=== PATIENT | male | born 1965 | race Caucasian/White ===

== ENCOUNTER 2018-01-03 11:10 | Emergency (ER) | payer BC ==
[~2018-01-03 11:10] MED LIST: Iopamidol 370 76% 100 ML VIAL ONE; Sodium Chloride 0.9% 1,000 ML BAG ONE
[2018-01-03 12:07] LABS: #Basophils 0.1 thou/uL (0.0-0.2); #Eosinphils 0.2 thou/uL (0.0-0.7); #Lymphocytes 1.5 thou/uL (1.20-3.40); #Monocytes 0.7 thou/uL (0.11-0.59); #Neutrophils 4.3 thou/uL (1.40-6.50); %Basophils 2.1 % (0.0-1.0); %Eosinophils 3.1 % (0.0-10.0); %Lymphocytes 21.9 % (21.0-51.0); %Monocytes 10.3 % (0.0-10.0); %Neutrophils 62.7 % (42.0-75.0); Hemoglobin 8.6 g/dL (14.0-18.0); Mean Corpuscular HGB CONC 32.4 g/dL (32.0-36.0); Mean Corpuscular Hemoglobin 30.6 pg (27.0-31.0); Mean Corpuscular Volume 94.3 fl (80.0-94.0); Mean Platelet Volume 5.8 fL (7.4-10.4); Platelet Count 120 thou/uL (130-400); RBC Distribution Width 12.7 % (11.5-14.5); Red Blood Cell (RBC) Count 2.83 mill/uL (4.70-6.10); White Blood Cell (WBC) Count 6.8 thou/uL (4.8-10.8)
[2018-01-03 12:12] LABS: Bilirubin Large (Negative); Blood, Urine Large (Negative); Clarity Opaque (Clear); Glucose, Urine (Dipstick) 100 mg/dL (Negative); Leukocyte Large (Negative); Nitrite Positive (Negative); Protein, Urine (Dipstick) > or equal to 300 mg/dL (Neg-Trace); Specific Gravity, Urine 1.015 (1.005-1.030)
[2018-01-03 12:14] LABS: Bacteria/HPF Rare-Few HPF (None Seen); Other Microscopic Description C&S SET UP; RBC/HPF GREATER THAN 50-TNTC HPF (0-3); Squamous Epithelial 0-3 HPF (0-3)
[2018-01-03 12:17] LABS: MDiff Complete? YES; Manual Diff?? NO
[2018-01-03 12:19] LABS: ALT (SGPT) 22 U/L (8-55); AST (SGOT) 103 U/L (5-34); Alkaline Phosphatase 80 U/L (40-150); Anion Gap 16 mmol/L (10-20); BUN (Urea Nitrogen) 4 mg/dL (8.4-25.7); Bilirubin, Total 2.8 mg/dL (0.2-1.2); Calc. Creatinine Clearance 0 mL/min (70-130); Calcium 8.5 mg/dL (7.8-10.44); Carbon Dioxide 26 mmol/L (22-29); Chloride 99 mmol/L (98-107); Estimated GFR-MDRD Greater than 90; Globulin 4.3 g/dL (2.4-3.5); Glucose 199 mg/dL (70-105); Protein, Total 7.3 g/dL (6.0-8.3)
[2018-01-03 12:20] LABS: Sodium 137 mmol/L (136-145)
[2018-01-03] MEDS ORDERED: Morphine 10 MG/ML VIAL ONE ×2 (13:11→14:36)
[2018-01-03] MEDS ORDERED: Sulfameth/Trimethoprim DS 800-160mg TAB ONE (13:11)
[2018-01-03] MEDS ORDERED: Ciprofloxacin 500 MG TAB ONE (13:34)
[2018-01-03] MEDS ORDERED: Ondansetron HCl/PF 4 MG/2 ML Vial ONE (13:34)
--- NOTE | 2018-01-03 15:04 | CT ---
CT ABDOMEN WITH AND WITHOUT IV CONTRAST: Date: 01/03/18 HISTORY: Gross hematuria with abdominal pain and weight loss. COMPARISON: None available. FINDINGS: There is atelectasis present at each lung base. Mild vascular calcifications seen in the abdominal aorta and iliac arteries. There is nodular peripheral contour of the liver suggesting cirrhosis. In addition, there are geograp hic and mottled areas of diminished attenuation seen throughout each lobe of the liver, greater invol ving the left hepatic lobe. Vessels course through this region and architecture of the liver does not necessarily appear to be disrupted, and findings are probably related to geographic area of fatty in filtration as opposed to an infiltrative-type lesion. The spleen is enlarged, measuring 16.6 cm in AP dimensions. There is evidence of varices within the a bdomen adjacent to the liver and spleen, and in the region of the gastrohepatic ligament and probable very small esophageal varices as well, and findings are suggestive of portal hypertension. The watson l veins are patent. No renal or ureteral calculi are seen bilaterally. There is no evidence of hydronephrosis. No enhanci ng renal mass is visualized. Delayed imaging was not obtained to evaluate the ureters. A large, lobul ated, enhancing mass is seen in the right aspect of the urinary bladder which measures 7.1 cm cranioc audal x 6.3 cm AP x 4.6 cm transverse. This large mass does overlie the region of the right ureterove sical junction, but no hydronephrosis or hydroureter is seen on the right. This urinary bladder mass does abut the wall of the urinary bladder. No definitive extension can be delineated on this examinat ion. The pancreas and bilateral adrenal glands have a normal CT appearance. There are no enlarged lymph nodes seen by CT size criteria. There is a small amount of intraperitoneal free fluid with a large amount seen in the pelvis. No lytic or sclerotic osseous lesions are identified. IMPRESSION: 1. Large urinary bladder mass suspicious for transitional cell carcinoma. While this mass does overl ie the region of the right UVJ, there is no hydroureter or hydronephrosis present on the right. 2. Normal appearance of the bilateral kidneys, and no enhancing renal mass is seen. 3. Cirrhosis and splenomegaly with findings suggesting an element of portal hypertension. 4. Mottled appearance of the liver with areas of diminished attenuation on both pre and postcontrast imaging, which is most likely attributable to geographic fatty infiltration as opposed to an infiltr ating-type lesion. 5. Cholelithiasis, as well as increased density material in the gallbladder lumen dependently, proba farida related to sludge. 6. Ascites. 7. Mildly prominent lymph node just anterior to the aortic bifurcation measuring 1.0 cm. However, no enlarged lymph nodes are seen by CT size criteria. Above findings discussed with Dr. [place] on 01/03/18 at 1441 hours. CODE CR. POS: [place]
[2018-01-03 16:36] LABS: INR-International Normal Ratio 1.3; Prothrombin Time 16.4 SEC (12.0-14.7)
== END 2018-01-03 18:25 | disposition home or self-care (01) ==
LOC: MADERS 11:10
DX: N32.89 Other specified disorders of bladder (principal)
CPT/HCPCS: 36415; 74178; 80053; 81001; 85025; 85610; 85730; 87077; 87086; 96361; 96374; 96376; J2270; J2405; J7050

== ENCOUNTER 2018-02-18 12:17 | Outpatient (CLI) | payer OTHER ==
[2018-02-18 13:08] LABS: INR-International Normal Ratio 1.3; Prothrombin Time 16.7 SEC (12.0-14.7)
[2018-02-18 13:13] LABS: #Basophils 0.2 thou/uL (0.0-0.2); #Eosinphils 0.4 thou/uL (0.0-0.7); #Lymphocytes 2.2 thou/uL (1.20-3.40); #Monocytes 0.9 thou/uL (0.11-0.59); #Neutrophils 7.9 thou/uL (1.40-6.50); %Basophils 1.6 % (0.0-1.0); %Eosinophils 3.2 % (0.0-10.0); %Monocytes 7.8 % (0.0-10.0); %Neutrophils 68.4 % (42.0-75.0); Hemoglobin 12.5 g/dL (14.0-18.0); Mean Corpuscular HGB CONC 31.7 g/dL (32.0-36.0); Mean Corpuscular Hemoglobin 27.2 pg (27.0-31.0); Mean Corpuscular Volume 85.9 fL (78.0-98.0); Mean Platelet Volume 6.9 fL (7.4-10.4); Platelet Count 221 thou/uL (130-400); RBC Distribution Width 16.2 % (11.5-14.5); Red Blood Cell (RBC) Count 4.61 mill/uL (4.70-6.10); White Blood Cell (WBC) Count 11.6 thou/uL (4.8-10.8)
[2018-02-18 13:29] LABS: ALT (SGPT) 20 U/L (8-55); AST (SGOT) 64 U/L (5-34); Albumin 2.7 g/dL (3.5-5.0); Alkaline Phosphatase 72 U/L (40-150); Anion Gap 18 mmol/L (10-20); BUN (Urea Nitrogen) 10 mg/dL (8.4-25.7); Bilirubin, Total 3.4 mg/dL (0.2-1.2); Calc. Creatinine Clearance 0 mL/min (70-130); Calcium 8.4 mg/dL (7.8-10.44); Carbon Dioxide 25 mmol/L (22-29); Chloride 90 mmol/L (98-107); Estimated GFR-MDRD Greater than 90; Globulin 5.5 g/dL (2.4-3.5); Glucose 155 mg/dL (70-105); Potassium 3.8 mmol/L (3.5-5.1); Protein, Total 8.2 g/dL (6.0-8.3); Sodium 129 mmol/L (136-145)
== END 2018-02-18 12:18 | disposition home or self-care (01) ==
LOC: MADLABBHPM 12:17
PROVIDERS: ATTEND Family Medicine
DX: K74.60 Unspecified cirrhosis of liver (principal); K76.9 Liver disease, unspecified; E87.1 Hypo-osmolality and hyponatremia; I10 Essential (primary) hypertension
CPT/HCPCS: 36415; 80053; 85025; 85610

== ENCOUNTER 2021-06-08 11:24 | Outpatient (CLI) | payer BC ==
[2021-06-08 11:56] LABS: #Basophils 0.1 thou/uL (0.0-0.2); #Eosinphils 0.2 thou/uL (0.0-0.7); #Lymphocytes 1.2 thou/uL (1.20-3.40); #Monocytes 0.5 thou/uL (0.11-0.59); #Neutrophils 3.6 thou/uL (1.40-6.50); %Basophils 1.3 % (0.0-1.0); %Eosinophils 4.1 % (0.0-10.0); %Lymphocytes 21.3 % (21.0-51.0); %Monocytes 8.3 % (0.0-10.0); Hemoglobin 10.5 g/dL (14.0-18.0); Mean Corpuscular HGB CONC 30.8 g/dL (32.0-36.0); Mean Corpuscular Hemoglobin 25.1 pg (27.0-31.0); Mean Corpuscular Volume 81.5 fL (78.0-98.0); Mean Platelet Volume 7.3 fL (7.4-10.4); Platelet Count 151 thou/uL (130-400); RBC Distribution Width 16.7 % (11.5-14.5); Red Blood Cell (RBC) Count 4.19 mill/uL (4.70-6.10); White Blood Cell (WBC) Count 5.5 thou/uL (4.8-10.8)
[2021-06-08 12:05] LABS: ALT (SGPT) 10 U/L (8-55); AST (SGOT) 18 U/L (5-34); Albumin 3.2 g/dL (3.5-5.0); Alkaline Phosphatase 100 U/L (40-110); Anion Gap 13 mmol/L (10-20); BUN (Urea Nitrogen) 11 mg/dL (8.4-25.7); Bilirubin, Total 0.8 mg/dL (0.2-1.2); Calc. Creatinine Clearance 0 mL/min (70-130); Calcium 9.4 mg/dL (7.8-10.44); Carbon Dioxide 25 mmol/L (22-29); Cardiac Risk 4.3 (Less than 4.5); Chloride 107 mmol/L (98-107); Cholesterol 116 mg/dl (< 200 Desired); Globulin 5.1 g/dL (2.4-3.5); Glucose 102 mg/dL (70-105); HDL Cholesterol 27 mg/dL (>60 Neg Risk); LDL Cholesterol, Calculated 76 mg/dL; Potassium 4.4 mmol/L (3.5-5.1); Protein, Total 8.3 g/dL (6.0-8.3); Sodium 141 mmol/L (136-145); Triglycerides 64 mg/dL (Less than 150)
== END 2021-06-08 11:25 | disposition home or self-care (01) ==
LOC: MADLAB 11:24
PROVIDERS: ATTEND Family Medicine
DX: I10 Essential (primary) hypertension (principal); E11.9 Type 2 diabetes mellitus without complications
CPT/HCPCS: 36415; 80053; 80061; 83036; 84443; 85025

== ENCOUNTER 2021-11-07 11:30 | Outpatient (CLI) | payer BC, SELFPAY ==
[2021-11-07 12:04] LABS: #Basophils 0.1 thou/uL (0.0-0.2); #Eosinphils 0.3 thou/uL (0.0-0.7); #Lymphocytes 1.4 thou/uL (1.20-3.40); #Monocytes 0.5 thou/uL (0.11-0.59); %Basophils 1.3 % (0.0-1.0); %Eosinophils 3.8 % (0.0-10.0); %Lymphocytes 18.7 % (21.0-51.0); %Neutrophils 69.3 % (42.0-75.0); Hemoglobin 13.4 g/dL (14.0-18.0); Mean Corpuscular HGB CONC 33.3 g/dL (32.0-36.0); Mean Corpuscular Hemoglobin 28.4 pg (27.0-31.0); Mean Corpuscular Volume 85.4 fL (78.0-98.0); Mean Platelet Volume 6.3 fL (7.4-10.4); Platelet Count 147 thou/uL (130-400); RBC Distribution Width 12.8 % (11.5-14.5); Red Blood Cell (RBC) Count 4.73 mill/uL (4.70-6.10); White Blood Cell (WBC) Count 7.2 thou/uL (4.8-10.8)
[2021-11-07 12:18] LABS: INR-International Normal Ratio 1.1; Prothrombin Time 14.7 sec (12.0-14.7)
[2021-11-07 12:30] LABS: ALT (SGPT) 19 U/L (8-55); AST (SGOT) 18 U/L (5-34); Albumin 3.7 g/dL (3.5-5.0); Alkaline Phosphatase 102 U/L (40-110); Anion Gap 15 mmol/L (10-20); BUN (Urea Nitrogen) 17 mg/dL (8.4-25.7); Bilirubin, Total 0.6 mg/dL (0.2-1.2); Calc. Creatinine Clearance 0 mL/min (70-130); Calcium 9.7 mg/dL (7.8-10.44); Carbon Dioxide 23 mmol/L (22-29); Cardiac Risk 3.4 (Less than 4.5); Chloride 105 mmol/L (98-107); Cholesterol 148 mg/dl (< 200 Desired); Globulin 4.5 g/dL (2.4-3.5); Glucose 284 mg/dL (70-105); HDL Cholesterol 43 mg/dL (>60 Neg Risk); LDL Cholesterol, Calculated 91 mg/dL; Potassium 4.8 mmol/L (3.5-5.1); Protein, Total 8.2 g/dL (6.0-8.3); Sodium 138 mmol/L (136-145); Triglycerides 68 mg/dL (Less than 150)
[2021-11-07 16:09] LABS: Hemoglobin A1c 6.6 % (4.0-6.0)
== END 2021-11-07 11:31 | disposition home or self-care (01) ==
LOC: MADLAB 11:30
PROVIDERS: ATTEND Family Medicine
DX: K74.60 Unspecified cirrhosis of liver (principal); E11.9 Type 2 diabetes mellitus without complications
CPT/HCPCS: 36415; 80053; 80061; 83036; 85025; 85610

== ENCOUNTER 2023-02-04 11:11 | Emergency (ER) | payer MEDICARE, OTHER ==
[2023-02-04 11:45] LABS: #Basophils 0.2 thou/uL (0.0-0.2); #Eosinphils 0.3 thou/uL (0.0-0.7); #Lymphocytes 0.9 thou/uL (1.20-3.40); #Monocytes 0.9 thou/uL (0.11-0.59); #Neutrophils 11.9 thou/uL (1.40-6.50); %Basophils 1.1 % (0.0-1.0); %Eosinophils 2.3 % (0.0-10.0); %Lymphocytes 6.3 % (21.0-51.0); %Monocytes 6.2 % (0.0-10.0); %Neutrophils 84.1 % (42.0-75.0); Mean Corpuscular HGB CONC 32.7 g/dL (32.0-36.0); Mean Corpuscular Hemoglobin 26.8 pg (27.0-31.0); Mean Platelet Volume 7.8 fL (7.4-10.4); Platelet Count 250 10x3/uL (130-400); RBC Distribution Width 12.8 % (11.5-14.5); Red Blood Cell (RBC) Count 4.48 mill/uL (4.70-6.10); White Blood Cell (WBC) Count 14.2 10x3/uL (4.8-10.8)
[2023-02-04 11:52] LABS: INR-International Normal Ratio 1.3; PTT 33.6 sec (22.9-36.1); Prothrombin Time 16.4 sec (12.0-14.7)
[2023-02-04 12:04] LABS: ALT (SGPT) 16 U/L (8-55); AST (SGOT) 26 U/L (5-34); Albumin 3.4 g/dL (3.5-5.0); Alkaline Phosphatase 132 U/L (40-110); Anion Gap 14 mmol/L (10-20); BUN (Urea Nitrogen) 47 mg/dL (8.4-25.7); Bilirubin, Total 0.9 mg/dL (0.2-1.2); Calc. Creatinine Clearance 0 mL/min (70-130); Carbon Dioxide 24 mmol/L (22-29); Chloride 99 mmol/L (98-107); Estimated GFR 32; Globulin 5.4 g/dL (2.4-3.5); Glucose 186 mg/dL (70-105); Lipase 4 U/L (8-78); Potassium 4.1 mmol/L (3.5-5.1); Protein, Total 8.8 g/dL (6.0-8.3); Sodium 133 mmol/L (136-145)
[2023-02-04] MEDS ORDERED: Sodium Chloride 0.9% 100 ML ONE (12:07)
[2023-02-04] MEDS ORDERED: Vancomycin 1 GM VIAL ONE (12:07)
[2023-02-04] MEDS ORDERED: Lactated Ringer's 2,000 ML ONE (12:07)
[2023-02-04] MEDS ORDERED: Sodium Chloride 0.9% 250 ML 250 ML ONE (12:07)
[2023-02-04] MEDS ORDERED: Cefepime 2 GM VIAL ONE (12:07)
[2023-02-04 12:22] LABS: Acetaminophen Less than 10 mcg/mL (10.0-30.0); Alcohol Less than 10.0 mg/dL (Less than 10); Salicylate Less than 8.0 mg/dL (15.0-30.0)
[2023-02-04 12:26] LABS: Calcium 16.8 mg/dL (7.8-10.44)
[2023-02-04] MEDS ORDERED: Magnesium 2 GM/50 ML BAG (IN WATER) ONE (12:41)
[2023-02-04] MEDS ORDERED: Thiamine HCl 200 MG/2 ML VIAL ONE (12:41)
[2023-02-04 12:47] LABS: Phosphorus 2.5 mg/dL (2.3-4.7)
[2023-02-04] MEDS ORDERED: Prochlorperazine 10 MG/2 ML VIAL ONE (12:55)
[2023-02-04] MEDS ORDERED: Morphine 4 MG/ML VIAL ONE (12:55)
[2023-02-04 14:27] LABS: Bilirubin Negative (Negative); Blood, Urine Moderate (Negative); Clarity Slightly Cloudy (Clear); Glucose, Urine (Dipstick) Negative (Negative); Ketone, Urine Negative (Negative); Leukocyte Large (Negative); Nitrite Negative (Negative); Protein, Urine (Dipstick) 100 mg/dL (Neg-Trace); Specific Gravity, Urine 1.015 (1.005-1.030); Urobilinogen 0.2 mg/dL (Less than 2)
[2023-02-04 14:35] LABS: Bacteria/HPF Rare-Few HPF (None Seen); CAUTI Indications for Culture Dysuria,urgency,freq; Squamous Epithelial 0-3 HPF (0-3); WBC/HPF Greater Than 50 HPF (0-3)
[2023-02-04 14:36] LABS: Urine Culture Reflex Yes Yes
[2023-02-04 14:38] LABS: Cocaine Metabolite Screen Not Detected (NotDetected); Opiate Screen Detected (NotDetected); Phencyclidine (PCP) Not Detected (NotDetected); THC/Cannabinoid Screen Not Detected (NotDetected)
[2023-02-04 14:39] LABS: Amphetamine Not Detected (NotDetected); Barbiturates Screen Not Detected (NotDetected); Benzodiazepine Screen Not Detected (NotDetected); Methadone Not Detected (NotDetected); Methamphetamine Not Detected (NotDetected); Oxycodone Screen Not Detected (NotDetected); Tricyclic Screen Not Detected (NotDetected)
== END 2023-02-04 15:43 | disposition short-term general hospital (02) ==
LOC: MADERS 11:11
DX: A41.9 Sepsis, unspecified organism (principal); N17.9 Acute kidney failure, unspecified; E83.52 Hypercalcemia; E83.42 Hypomagnesemia; J18.9 Pneumonia, unspecified organism; C79.01 Secondary malignant neoplasm of right kidney and renal pelvis; C78.00 Secondary malignant neoplasm of unspecified lung; I10 Essential (primary) hypertension; E11.9 Type 2 diabetes mellitus without complications; Z79.4 Long term (current) use of insulin; Z79.82 Long term (current) use of aspirin; Z79.899 Other long term (current) drug therapy
CPT/HCPCS: 36415; 36416; 51702; 70450; 71045; 71250; 74177; 80053; 80306; 80307; 81001; 83605; 83690; 83735; 84100; 84443; 84484; 85025; 85379; 85610; 85730; 87040; 87086; 93005; 94760; 96365; 96366; 96367; 96375; 99292; J0692; J0780; J1956; J2270; J3370; J3411; J3475; J3490; J7050; J7120